=== PATIENT | female | born 1950 | race Caucasian/White ===

== ENCOUNTER → 2017-02-18 | Outpatient (CLI) | payer MEDICARE, OTHER ==
[2017-02-18 09:37] LABS: HEMOGLOBIN 13.9 gm/dl (12.3-15.3); RED BLOOD COUNT 4.71 M/UL (4.00-5.10); WHITE BLOOD COUNT 6.9 K/UL (4.5-11.0)
[2017-02-18 10:18] LABS: BUN/CREATININE RATIO 17 (0-10)
== END ==
LOC: CT 02-11 13:00 → LAB 08:24 → CT 14:30
PROVIDERS: Physician Assistant
DX: R10.9 Unspecified abdominal pain (principal); E11.9 Type 2 diabetes mellitus without complications; E55.9 Vitamin D deficiency, unspecified; E78.2 Mixed hyperlipidemia
CPT/HCPCS: 36415; 80048; 80061; 80076; 83036; 84443; 85025; J7050; Q9962

== ENCOUNTER → 2021-10-29 | Outpatient (CLI) | payer MEDICARE, OTHER ==
[~2021-10-29] MED LIST: ADVAIR 100-501 EACH INH; ASPIRIN EC81 MG PO; CITALOPRAM HBR10 MG PO; CLOPIDOGREL75 MG PO; CRESTOR 10 MG T10 MG PO; GLUCOPHAGE1000 MG PO; IMDUR ER TAB 3030 MG PO; JANUVIA100 MG PO; NITROSTAT 0.40.4 MG SL; PREVACID15 MG PO; SINGULAIR10 MG PO; SYMBICORT 80-10.2 GM INH
[2021-10-29 14:00] LABS: HEMOGLOBIN 11.4 gm/dl (12.3-15.3); RED BLOOD COUNT 4.55 M/UL (4.00-5.10)
[2021-10-29 14:24] LABS: BUN/CREATININE RATIO 15 (0-10)
[2021-10-30 08:13] LABS: VITAMIN D, 25-HYDROXY 21.7 ng/mL (30.0-100.0)
[2021-10-30 09:14] LABS: HCV ANTIBODY <0.1 (0.0-0.9)
[2021-10-30 11:14] LABS: ANTISTREPTOLYSIN O AB <20.0 IU/mL (0.0-200.0); RHEUMATOID ARTHRITIS FACTOR <10.0 IU/mL (<14.0)
[2021-10-30 14:14] LABS: CREATININE, URINE 115.5 mg/dL (Not Estab.)
== END ==
LOC: LAB 12:30
PROVIDERS: Nurse Practitioner Family
DX: Z11.59 Encounter for screening for other viral diseases (principal); Z01.84 Encounter for antibody response examination; M25.50 Pain in unspecified joint; I10 Essential (primary) hypertension; E11.9 Type 2 diabetes mellitus without complications; E78.2 Mixed hyperlipidemia; E53.8 Deficiency of other specified B group vitamins; E55.9 Vitamin D deficiency, unspecified; N39.0 Urinary tract infection, site not specified
CPT/HCPCS: 36415; 80053; 80061; 82043; 82570; 82607; 84439; 84443; 84550; 84630; 85025; 85652; 86038; 86060; 86140; 86141; 86431; 86769; 86803